=== PATIENT | male | born 1955 | race African-American/Black ===

== ENCOUNTER → 2016-06-25 | Outpatient (CLI) | payer BC, MEDICARE ==
[~2016-06-25] MED LIST: AMBIEN PO; AMLODIPINE BESY10 MG PO; APRESOLINE PO; ASPIRIN PO; AUGMENTIN PO; CLONIDINE PO; HYTRIN PO; LANTUS100 U/ML SUBQ; LASIX PO; LIPITOR PO; LIPITOR80 MG PO; LISINOPRIL PO; LOPRESSOR PO; MAGNESIUM500 MG PO; MYFORTIC180 MG PO; NORVASC10 MG PO; NOVOLOG100 U/ML SUBQ; POTASSIUM CHLO10 MEQ PO; PROGRAF1 MG PO; RAMIPRIL2.5 MG PO; RENAGEL403 MG PO; ZOLPIDEM TARTRA10 MG PO; ZOLPIDEM TARTRAT5 MG PO
[2016-06-25 09:37] LABS: BASOPHIL% 0.8 % (0-2.5); EOSINOPHIL# 0.3 X10e3 (0-0.7); EOSINOPHIL% 4.1 % (0.0-7.0); HEMATOCRIT 41.1 % (38.0-50.0); HEMOGLOBIN 13.4 gm/dL (13.0-16.0); LYMPHOCYTE# 1.7 X10e3 (1.0-3.5); LYMPHOCYTE% 26.2 % (17.0-45.0); MEAN CELL VOLUME 80.9 FL (83-96); MEAN CORPUSCULAR HEMOGLOBIN 26.4 PG (28-34); MEAN CORPUSCULAR HGB CONC 32.7 g/dL (30-36); MEAN PLATELET VOLUME 8.6 FL (6.5-11.5); MONOCYTE# 0.7 X10e3 (0-1.0); MONOCYTE% 11.6 % (3.0-12.0); NEUTROPHIL# 3.6 X10e3 (1.5-7.1); NEUTROPHIL% 57.3 % (40-75); PLATELET COUNT 226 X10e3 (140-420); RED BLOOD COUNT 5.09 X10e (3.90-5.60); RED CELL DISTRIBUTION WIDTH 14.6 % (11.0-15.5); WHITE BLOOD COUNT 6.3 X10e3 (4.0-10.5)
[2016-06-25 10:02] LABS: ALBUMIN SERUM 3.7 g/dL (3.5-5.0); BILIRUBIN,TOTAL 0.6 mg/dL (0.2-2.0); BUN/CREATININE RATIO 11.66; CALCIUM SERUM 8.8 mg/dL (8.4-10.2); CREATININE SERUM 1.2 mg/dL (0.6-1.4); GLOM FILT RATE Estimated 76.8 mL/min (>60); POTASSIUM 3.5 mmol/L (3.5-5.1); PROTEIN TOTAL SERUM 7.3 g/dL (6.0-8.3)
[2016-06-25 10:07] LABS: DIFF IND NO
== END | disposition home or self-care (01) ==
LOC: CTPL 09:15
PROVIDERS: Internal Medicine Nephrology
DX: N18.2 Chronic kidney disease, stage 2 (mild) (principal); D63.1 Anemia in chronic kidney disease; Z94.0 Kidney transplant status
CPT/HCPCS: 36415; 80053; 80197; 82465; 85025

== ENCOUNTER → 2016-09-30 | Outpatient (CLI) | payer BC, MEDICARE ==
[2016-09-30 07:54] LABS: BASOPHIL% 0.4 % (0-2.5); EOSINOPHIL# 0.2 X10e3 (0-0.7); EOSINOPHIL% 2.7 % (0.0-7.0); HEMATOCRIT 44.3 % (38.0-50.0); HEMOGLOBIN 14.3 gm/dL (13.0-16.0); LYMPHOCYTE# 3.2 X10e3 (1.0-3.5); LYMPHOCYTE% 40.7 % (17.0-45.0); MEAN CELL VOLUME 81.7 FL (83-96); MEAN CORPUSCULAR HEMOGLOBIN 26.4 PG (28-34); MEAN CORPUSCULAR HGB CONC 32.3 g/dL (30-36); MEAN PLATELET VOLUME 9.4 FL (6.5-11.5); MONOCYTE# 0.6 X10e3 (0-1.0); MONOCYTE% 8.3 % (3.0-12.0); NEUTROPHIL# 3.7 X10e3 (1.5-7.1); NEUTROPHIL% 47.9 % (40-75); PLATELET COUNT 200 X10e3 (140-420); RED BLOOD COUNT 5.42 X10e (3.90-5.60); RED CELL DISTRIBUTION WIDTH 15.8 % (11.0-15.5); WHITE BLOOD COUNT 7.8 X10e3 (4.0-10.5)
[2016-09-30 07:55] LABS: DIFF IND NO
[2016-09-30 08:04] LABS: ALBUMIN SERUM 3.9 g/dL (3.5-5.0); BILIRUBIN,TOTAL 0.6 mg/dL (0.2-2.0); BUN/CREATININE RATIO 8.66; CALCIUM SERUM 9.3 mg/dL (8.4-10.2); CREATININE SERUM 1.5 mg/dL (0.6-1.4); GLOM FILT RATE Estimated 58.3 mL/min (>60); MAGNESIUM 1.4 mg/dL (1.6-3.0); POTASSIUM 3.6 mmol/L (3.5-5.1); PROTEIN TOTAL SERUM 7.4 g/dL (6.0-8.3)
== END | disposition home or self-care (01) ==
LOC: CLAB 06:35
PROVIDERS: Internal Medicine Nephrology
DX: N18.2 Chronic kidney disease, stage 2 (mild) (principal)
CPT/HCPCS: 36415; 80053; 80197; 82465; 83036; 83735; 85025